=== PATIENT | female | born 1995 | race Caucasian/White ===

== ENCOUNTER 2017-09-28 18:36 | Inpatient (IN) | payer BC ==
[2017-09-28] MEDS ORDERED: ONDANSETRON 4 MG INJ IV (19:00)
[2017-09-28] MEDS ORDERED: SOD CHLORIDE 0.9% 1,000 ML IV (19:00)
[2017-09-28] MEDS: DEXTROSE 5%-0.45% NACL 1,000 ML IV (21:30)
[2017-09-29 00:48] LABS: ADD MAN DIFF? NO
[2017-09-29 00:53] LABS: WHITE BLOOD COUNT 15.6 10^3/ul (4.8-10.8)
[2017-09-29 00:53] LABS: BASOPHILS % 0.2 % (0.0-2.0); HEMATOCRIT 35.4 % (37.0-47.0); HEMOGLOBIN 11.4 g/dl (12.0-16.0); LYMPHOCYTES # 1.2 10^3/ul (0.8-2.9); LYMPHOCYTES % 7.6 % (15.0-51.0); MEAN CORPUSCULAR HEMOGLOBIN 23.4 pg (29.0-33.0); MEAN CORPUSCULAR HGB CONC 32.2 g/dl (32.0-37.0); MEAN CORPUSCULAR VOLUME 72.7 fl (82.0-101.0); MONOCYTE # 0.8 10^3/ul (0.3-0.9); MONOCYTES % 5.3 % (0.0-11.0); NEUTROPHIL # 13.5 10^3/ul (1.6-7.5); NEUTROPHILS % 86.5 % (39.0-77.0); PLATELET COUNT 226 10^3/UL (140-415); RED BLOOD COUNT 4.87 10^6/ul (4.20-5.40); RED CELL DISTRIBUTION WIDTH 13.5 % (11.5-14.5)
[2017-09-29 01:12] LABS: ALANINE AMINOTRANSFERASE 54 IU/L (13-69); ALBUMIN 3.1 g/dl (3.3-4.9); ALBUMIN/GLOBULIN RATIO 1.19; ALKALINE PHOSPHATASE 39 IU/L (42-121); ANION GAP 13 (8-16); ASPARTATE AMINO TRANSFERASE 21 IU/L (15-46); BILIRUBIN,INDIRECT 0.4 mg/dl (0-1.1); BILIRUBIN,TOTAL 0.4 mg/dl (0.2-1.3); BLOOD UREA NITROGEN 7 mg/dl (7-20); CALCIUM 7.7 mg/dl (8.4-10.2); CARBON DIOXIDE 23 mmol/L (21-31); CHLORIDE 109 mmol/L (97-110); GLUCOSE 133 mg/dl (70-220); MAGNESIUM 1.3 mg/dl (1.7-2.5); PHOSPHORUS 2.6 mg/dl (2.5-4.9); POTASSIUM 3.5 mmol/L (3.5-5.1); SODIUM 141 mmol/L (135-144); TOTAL PROTEIN 5.7 g/dl (6.1-8.1)
[2017-09-29] MEDS: ACETAMINOPHEN 325 MG TAB PO (02:20)
[2017-09-29] MEDS ORDERED: ALBUTEROL/IPRATROPIUM (NEB) 3 ML AMP HHN (04:00)
[2017-09-29] MEDS ORDERED: NACL 0.9% 3 ML SYG IV (04:00)
[2017-09-29] MEDS ORDERED: morphine 2 MG INJ IV (04:00)
[2017-09-29] MEDS: DEXTROSE 5%-0.45% NACL 1,000 ML IV ×3 (05:03→18:57)
[2017-09-29] MEDS: CIPROFLOXACIN 400MG/D5W 200 ML IVPB ×3 (05:03→20:42)
[2017-09-29 05:49] LABS: ADD MAN DIFF? NO
[2017-09-29 05:57] LABS: WHITE BLOOD COUNT 14.5 10^3/ul (4.8-10.8)
[2017-09-29 05:57] LABS: BASOPHILS % 0.2 % (0.0-2.0); HEMATOCRIT 36.1 % (37.0-47.0); HEMOGLOBIN 11.4 g/dl (12.0-16.0); LYMPHOCYTES # 1.4 10^3/ul (0.8-2.9); LYMPHOCYTES % 9.7 % (15.0-51.0); MEAN CORPUSCULAR HEMOGLOBIN 23.1 pg (29.0-33.0); MEAN CORPUSCULAR HGB CONC 31.6 g/dl (32.0-37.0); MEAN CORPUSCULAR VOLUME 73.2 fl (82.0-101.0); MEAN PLATELET VOLUME 11.3 fl (7.4-10.4); MONOCYTES % 6.6 % (0.0-11.0); NEUTROPHIL # 12.1 10^3/ul (1.6-7.5); PLATELET COUNT 233 10^3/UL (140-415); RED BLOOD COUNT 4.93 10^6/ul (4.20-5.40); RED CELL DISTRIBUTION WIDTH 13.5 % (11.5-14.5)
[2017-09-29 06:45] LABS: ALANINE AMINOTRANSFERASE 54 IU/L (13-69); ALKALINE PHOSPHATASE 37 IU/L (42-121); ANION GAP 11 (8-16); ASPARTATE AMINO TRANSFERASE 20 IU/L (15-46); BILIRUBIN,INDIRECT 0.5 mg/dl (0-1.1); BILIRUBIN,TOTAL 0.5 mg/dl (0.2-1.3); BLOOD UREA NITROGEN 4 mg/dl (7-20); CALCIUM 7.9 mg/dl (8.4-10.2); CARBON DIOXIDE 25 mmol/L (21-31); CHLORIDE 110 mmol/L (97-110); CREATININE 0.72 mg/dl (0.44-1.00); GLUCOSE 135 mg/dl (70-220); POTASSIUM 3.6 mmol/L (3.5-5.1); SODIUM 142 mmol/L (135-144); TOTAL PROTEIN 5.3 g/dl (6.1-8.1)
[2017-09-29] MEDS: metroNIDAZOLE 500 MG/NS (PMX) 100 ML IVPB ×3 (06:45→22:18)
[2017-09-29] MEDS: morphine 2 MG INJ IV ×3 (06:49→17:37)
[2017-09-29] MEDS: FAMOTIDINE 20 MG INJ IV ×2 (09:21→20:41)
[2017-09-29 10:33] LABS: OCCULT BLOOD STOOL NEGATIVE (NEGATIVE)
[2017-09-29 10:36] LABS: ADD UMIC NO; UR ASCORBIC ACID NEGATIVE (NEGATIVE); UR BILIRUBIN (Dip) NEGATIVE (NEGATIVE); UR BLOOD (Dip) NEGATIVE (NEGATIVE); UR CLARITY CLEAR (CLEAR); UR COLOR STRAW (YELLOW); UR GLUCOSE (Dip) NEGATIVE (NEGATIVE); UR KETONES (Dip) TRACE mg/dL (NEGATIVE); UR LEUKOCYTE ESTERASE (Dip) NEGATIVE Leu/ul (NEGATIVE); UR NITRITE (Dip) NEGATIVE (NEGATIVE); UR SPECIFIC GRAVITY (Dip) 1.006 (1.003-1.030); UR TOTAL PROTEIN (Dip) NEGATIVE (NEGATIVE); UR UROBILINOGEN (Dip) NEGATIVE (NEGATIVE)
[2017-09-29] MEDS: IOHEXOL 300MG/ML 150 ML BTL (14:44)
[2017-09-29] MEDS: SOD CHLORIDE 0.9% 100 ML (14:44)
[2017-09-29] MEDS: MAGNESIUM CITRATE 300 ML BTL PO (18:57)
[2017-09-29] MEDS: POLYETHYLENE GLYCOL 3350 119 GM POWDER PO (18:58)
[2017-09-29] MEDS: BISACODYL (EC) 5 MG TAB PO (18:58)
[2017-09-29] MEDS: morphine 4 MG/ML VIAL IV (20:42)
[2017-09-29] MEDS: ONDANSETRON 4 MG INJ IV (22:18)
[2017-09-30] MEDS: morphine 2 MG INJ IV ×4 (02:59→18:38)
[2017-09-30] MEDS: DEXTROSE 5%-0.45% NACL 1,000 ML IV ×3 (05:19→21:30)
[2017-09-30] MEDS: metroNIDAZOLE 500 MG/NS (PMX) 100 ML IVPB ×4 (05:23→21:02)
[2017-09-30] MEDS: POLYETHYLENE GLYCOL 3350 119 GM POWDER PO (05:30)
[2017-09-30 06:01] LABS: ADD MAN DIFF? NO
[2017-09-30 06:05] LABS: WHITE BLOOD COUNT 9.1 10^3/ul (4.8-10.8)
[2017-09-30 06:05] LABS: BASOPHILS % 0.2 % (0.0-2.0); EOSINOPHILS # 0.1 10^3/ul (0.0-0.5); EOSINOPHILS % 1.5 % (0.0-7.0); HEMATOCRIT 35.6 % (37.0-47.0); HEMOGLOBIN 11.5 g/dl (12.0-16.0); LYMPHOCYTES % 21.5 % (15.0-51.0); MEAN CORPUSCULAR HEMOGLOBIN 23.4 pg (29.0-33.0); MEAN CORPUSCULAR HGB CONC 32.3 g/dl (32.0-37.0); MEAN CORPUSCULAR VOLUME 72.4 fl (82.0-101.0); MEAN PLATELET VOLUME 10.9 fl (7.4-10.4); MONOCYTE # 1.1 10^3/ul (0.3-0.9); MONOCYTES % 11.6 % (0.0-11.0); NEUTROPHIL # 5.9 10^3/ul (1.6-7.5); NEUTROPHILS % 64.8 % (39.0-77.0); PLATELET COUNT 228 10^3/UL (140-415); RED BLOOD COUNT 4.92 10^6/ul (4.20-5.40); RED CELL DISTRIBUTION WIDTH 13.5 % (11.5-14.5)
[2017-09-30 06:27] LABS: CHOLESTEROL 111 mg/dl (100-200)
[2017-09-30 06:27] LABS: CHOL/HDL RATIO 3.4 RATIO; HDL CHOLESTEROL 32 mg/dl (33-83); LDL CHOLESTEROL,CALCULATED 59 mg/dl; TRIGLYCERIDES 102 mg/dl (0-149)
[2017-09-30 06:32] LABS: ANION GAP 11 (8-16); BLOOD UREA NITROGEN 2 mg/dl (7-20); CALCIUM 8.6 mg/dl (8.4-10.2); CARBON DIOXIDE 27 mmol/L (21-31); CHLORIDE 109 mmol/L (97-110); CREATININE 0.54 mg/dl (0.44-1.00); GLUCOSE 112 mg/dl (70-220); PHOSPHORUS 2.8 mg/dl (2.5-4.9); POTASSIUM 3.3 mmol/L (3.5-5.1); SODIUM 144 mmol/L (135-144)
[2017-09-30 07:27] LABS: HEMOGLOBIN A1C 5.3 % (0-5.9)
[2017-09-30] MEDS: BISACODYL (EC) 5 MG TAB PO (08:54)
[2017-09-30] MEDS: CIPROFLOXACIN 400MG/D5W 200 ML IVPB ×2 (08:54→20:58)
[2017-09-30] MEDS: FAMOTIDINE 20 MG INJ IV (09:00)
[2017-09-30] MEDS: POTASSIUM CHLORIDE (SR) 10 MEQ TAB PO (15:23)
[2017-09-30] MEDS: MIDAZOLAM 1 MG/ML 2 ML INJ (16:21)
[2017-09-30] MEDS: PROPOFOL 20 ML (16:21)
[2017-09-30] MEDS: FENTAnyl 50 MCG/ML VIAL (16:21)
[2017-09-30] MEDS: PANTOPRAZOLE 40 MG INJ IV (18:37)
[2017-09-30] MEDS: ONDANSETRON 4 MG INJ IV (18:38)
[2017-09-30] MEDS: BALSALAZIDE 750 MG CAP PO (20:57)
[2017-10-01] MEDS: DEXTROSE 5%-0.45% NACL 1,000 ML IV (03:03)
[2017-10-01] MEDS: PANTOPRAZOLE 40 MG INJ IV (05:46)
[2017-10-01] MEDS: metroNIDAZOLE 500 MG/NS (PMX) 100 ML IVPB ×2 (05:46→14:04)
[2017-10-01] MEDS: ACETAMINOPHEN 325 MG TAB PO (05:51)
[2017-10-01 05:57] LABS: ADD MAN DIFF? NO
[2017-10-01 06:02] LABS: BASOPHILS % 0.6 % (0.0-2.0); EOSINOPHILS # 0.3 10^3/ul (0.0-0.5); EOSINOPHILS % 4.6 % (0.0-7.0); HEMATOCRIT 37.3 % (37.0-47.0); LYMPHOCYTES # 2.2 10^3/ul (0.8-2.9); LYMPHOCYTES % 30.6 % (15.0-51.0); MEAN CORPUSCULAR HEMOGLOBIN 23.1 pg (29.0-33.0); MEAN CORPUSCULAR HGB CONC 32.2 g/dl (32.0-37.0); MEAN CORPUSCULAR VOLUME 71.7 fl (82.0-101.0); MEAN PLATELET VOLUME 10.8 fl (7.4-10.4); MONOCYTE # 0.7 10^3/ul (0.3-0.9); MONOCYTES % 9.4 % (0.0-11.0); NEUTROPHIL # 3.8 10^3/ul (1.6-7.5); NEUTROPHILS % 54.4 % (39.0-77.0); PLATELET COUNT 275 10^3/UL (140-415); RED CELL DISTRIBUTION WIDTH 13.5 % (11.5-14.5)
[2017-10-01 06:34] LABS: PHOSPHORUS 3.8 mg/dl (2.5-4.9)
[2017-10-01 06:34] LABS: MAGNESIUM 1.9 mg/dl (1.7-2.5)
[2017-10-01 06:35] LABS: ALANINE AMINOTRANSFERASE 57 IU/L (13-69); ALBUMIN 3.4 g/dl (3.3-4.9); ALBUMIN/GLOBULIN RATIO 1.25; ALKALINE PHOSPHATASE 41 IU/L (42-121); ANION GAP 13 (8-16); ASPARTATE AMINO TRANSFERASE 32 IU/L (15-46); BILIRUBIN,INDIRECT 0.3 mg/dl (0-1.1); BILIRUBIN,TOTAL 0.3 mg/dl (0.2-1.3); BLOOD UREA NITROGEN 4 mg/dl (7-20); CALCIUM 8.3 mg/dl (8.4-10.2); CARBON DIOXIDE 25 mmol/L (21-31); CHLORIDE 108 mmol/L (97-110); CREATININE 0.63 mg/dl (0.44-1.00); GLUCOSE 113 mg/dl (70-220); POTASSIUM 3.4 mmol/L (3.5-5.1); SODIUM 143 mmol/L (135-144); TOTAL PROTEIN 6.1 g/dl (6.1-8.1)
[2017-10-01] MEDS: CIPROFLOXACIN 400MG/D5W 200 ML IVPB (08:31)
[2017-10-01] MEDS: BALSALAZIDE 750 MG CAP PO ×3 (08:31→21:11)
[2017-10-01] MEDS: PANTOPRAZOLE (EC) 40 MG TAB PO (17:37)
[2017-10-01] MEDS: CIPROFLOXACIN 500 MG TAB PO (17:37)
[2017-10-01] MEDS: METHYLPREDNISOLONE 40 MG INJ IV ×2 (18:28→21:12)
[2017-10-01] MEDS: metroNIDAZOLE 500 MG TAB PO (21:11)
[2017-10-02] MEDS: METHYLPREDNISOLONE 40 MG INJ IV (06:41)
[2017-10-02] MEDS: PANTOPRAZOLE (EC) 40 MG TAB PO ×2 (06:41→09:00)
[2017-10-02] MEDS: CIPROFLOXACIN 500 MG TAB PO (06:41)
[2017-10-02] MEDS: BALSALAZIDE 750 MG CAP PO (09:05)
[2017-10-02] MEDS ORDERED: predniSONE 20 MG TAB PO (14:00)
== END 2017-10-02 11:00 | disposition home or self-care (01) | DRG 386 ==
LOC: MS2 18:36
PROVIDERS: Internal Medicine
PROC: 0DBK8ZX Excision of Ascending Colon, Via Natural or Artificial Opening Endoscopic, Diagnostic (ICD-10-PCS; principal; 2017-09-30 16:10)
PROC: 0DBL8ZX Excision of Transverse Colon, Via Natural or Artificial Opening Endoscopic, Diagnostic (ICD-10-PCS; 2017-09-30 16:10)
PROC: 0DBP8ZX Excision of Rectum, Via Natural or Artificial Opening Endoscopic, Diagnostic (ICD-10-PCS; 2017-09-30 16:10)
PROC: 0DBB8ZX Excision of Ileum, Via Natural or Artificial Opening Endoscopic, Diagnostic (ICD-10-PCS; 2017-09-30 16:10)
PROC: 0DBM8ZX Excision of Descending Colon, Via Natural or Artificial Opening Endoscopic, Diagnostic (ICD-10-PCS; 2017-09-30 16:10)
PROC: 0DBH8ZX Excision of Cecum, Via Natural or Artificial Opening Endoscopic, Diagnostic (ICD-10-PCS; 2017-09-30 16:10)
DX: K51.00 Ulcerative (chronic) pancolitis without complications (principal); Z68.41 Body mass index [BMI] 40.0-44.9, adult; R65.10 Systemic inflammatory response syndrome (SIRS) of non-infectious origin without acute organ dysfunction; E66.01 Morbid (severe) obesity due to excess calories; D50.9 Iron deficiency anemia, unspecified; K52.9 Noninfective gastroenteritis and colitis, unspecified; K64.8 Other hemorrhoids; K29.70 Gastritis, unspecified, without bleeding; E86.0 Dehydration; Z87.891 Personal history of nicotine dependence
CPT/HCPCS: 74177; 80048; 80053; 80061; 81003; 82270; 83036; 83605; 83735; 84100; 84703; 85025; 87040; 87045; 87075; 87086; 88305

== ENCOUNTER 2018-03-15 07:07 | Day surgery (SDC) | payer BC ==
[~2018-03-15 07:07] MED LIST: ACETAMINOPHEN 1000 MG/100 ML IVPB; LIDOCAINE 2% (SDV) 5 ML INJ
[2018-03-15] MEDS ORDERED: PROPOFOL 100 ML (08:47)
[2018-03-15] MEDS ORDERED: ROCURONIUM 50 MG INJ (09:22)
[2018-03-15] MEDS ORDERED: DEXAMETHASONE 4 MG/ML 1 ML INJ (09:23)
[2018-03-15] MEDS ORDERED: ONDANSETRON 4 MG INJ (09:29)
[2018-03-15] MEDS ORDERED: SUGAMMADEX SODIUM 200 MG/2 ML VIAL IV (09:40)
[2018-03-15] MEDS ORDERED: HYDROmorphONE 0.5 MG/0.5 ML SYG IV (10:00)
[2018-03-15] MEDS: FENTAnyl 50 MCG/ML VIAL IV ×2 (10:14→10:22)
[2018-03-15] MEDS: ONDANSETRON 4 MG INJ IV (10:16)
[2018-03-15] MEDS ORDERED: EPHEDrine SULFATE 50 MG/5 ML SYG IV (10:30)
[2018-03-15] MEDS ORDERED: HYDROmorphONE 1 MG/5 ML IV SYRINGE IV ×3 (10:30)
[2018-03-15] MEDS ORDERED: MIDAZOLAM 1 MG/ML 2 ML INJ IV (10:30)
[2018-03-15] MEDS ORDERED: FENTAnyl 50 MCG/ML VIAL IV ×2 (10:30)
[2018-03-15] MEDS ORDERED: DIPHENHYDRAMINE 50 MG INJ IV (10:30)
[2018-03-15] MEDS ORDERED: hydrALAzine 20 MG INJ IV (10:30)
[2018-03-15] MEDS ORDERED: LABETALOL HCL 20MG INJ IV (10:30)
[2018-03-15] MEDS ORDERED: METOCLOPRAMIDE 10 MG INJ IV (10:30)
[2018-03-15] MEDS ORDERED: MEPERIDINE 25 MG INJ IV (10:30)
[2018-03-15] MEDS ORDERED: OXYCODONE/ACETAMINOPHEN (5/325) TAB PO ×2 (10:30)
[2018-03-15] MEDS ORDERED: ALBUTEROL 0.083% (NEB) 2.5 MG/3 ML AMP HHN (10:30)
== END 2018-03-15 12:15 | disposition home or self-care (01) ==
LOC: SDS 07:07
DX: J35.3 Hypertrophy of tonsils with hypertrophy of adenoids (principal)
CPT/HCPCS: 42821; 84703; 88304

== ENCOUNTER 2018-03-20 10:35 | Emergency (ER) | payer BC ==
[2018-03-20] MEDS: IBUPROFEN LIQUID (PED) 20 MG/ML CUP PO (11:07)
== END 2018-03-20 11:45 | disposition home or self-care (01) ==
LOC: FTE 10:35
DX: G89.18 Other acute postprocedural pain (principal); R40.2412 Glasgow coma scale score 13-15, at arrival to emergency department
CPT/HCPCS: 99282; Z7502

== ENCOUNTER 2018-06-22 11:57 | Emergency (ER) | payer BC ==
[2018-06-22 13:48] LABS: ADD MAN DIFF? NO
[2018-06-22 13:54] LABS: WHITE BLOOD COUNT 9.1 10^3/ul (4.8-10.8)
[2018-06-22 13:54] LABS: BASOPHIL # 0.1 10^3/ul (0.0-0.1); BASOPHILS % 0.5 % (0.0-2.0); EOSINOPHILS # 0.3 10^3/ul (0.0-0.5); EOSINOPHILS % 3.6 % (0.0-7.0); HEMATOCRIT 44.1 % (37.0-47.0); HEMOGLOBIN 13.8 g/dl (12.0-16.0); LYMPHOCYTES # 3.8 10^3/ul (0.8-2.9); LYMPHOCYTES % 41.1 % (15.0-51.0); MEAN CORPUSCULAR HEMOGLOBIN 22.8 pg (29.0-33.0); MEAN CORPUSCULAR HGB CONC 31.3 g/dl (32.0-37.0); MEAN CORPUSCULAR VOLUME 72.9 fl (82.0-101.0); MEAN PLATELET VOLUME 10.7 fl (7.4-10.4); MONOCYTE # 0.6 10^3/ul (0.3-0.9); MONOCYTES % 6.6 % (0.0-11.0); NEUTROPHIL # 4.4 10^3/ul (1.6-7.5); NEUTROPHILS % 47.9 % (39.0-77.0); PLATELET COUNT 334 10^3/UL (140-415); RED BLOOD COUNT 6.05 10^6/ul (4.20-5.40); RED CELL DISTRIBUTION WIDTH 13.2 % (11.5-14.5)
[2018-06-22 14:00] LABS: ADD UMIC YES; UR ASCORBIC ACID NEGATIVE (NEGATIVE); UR BILIRUBIN (Dip) NEGATIVE (NEGATIVE); UR BLOOD (Dip) NEGATIVE (NEGATIVE); UR CLARITY CLEAR (CLEAR); UR COLOR YELLOW (YELLOW); UR GLUCOSE (Dip) NEGATIVE (NEGATIVE); UR KETONES (Dip) NEGATIVE (NEGATIVE); UR LEUKOCYTE ESTERASE (Dip) TRACE Leu/ul (NEGATIVE); UR MUCUS FEW /HPF (NONE SEEN); UR NITRITE (Dip) NEGATIVE (NEGATIVE); UR RBC 0 /HPF (0-5); UR SPECIFIC GRAVITY (Dip) 1.021 (1.003-1.030); UR TOTAL PROTEIN (Dip) NEGATIVE (NEGATIVE); UR UROBILINOGEN (Dip) NEGATIVE (NEGATIVE); UR WBC 1 /HPF (0-5)
[2018-06-22 14:11] LABS: ALANINE AMINOTRANSFERASE 178 IU/L (13-69); ALBUMIN 4.6 g/dl (3.3-4.9); ALBUMIN/GLOBULIN RATIO 1.43; ALKALINE PHOSPHATASE 50 IU/L (42-121); ANION GAP 17 (5-13); ASPARTATE AMINO TRANSFERASE 106 IU/L (15-46); BILIRUBIN,INDIRECT 0.3 mg/dl (0-1.1); BILIRUBIN,TOTAL 0.3 mg/dl (0.2-1.3); BLOOD UREA NITROGEN 11 mg/dl (7-20); CALCIUM 9.7 mg/dl (8.4-10.2); CARBON DIOXIDE 26 mmol/L (21-31); CHLORIDE 102 mmol/L (97-110); CREATININE 0.51 mg/dl (0.44-1.00); Estimated GFR > 60 mL/min (>60); GLUCOSE 102 mg/dl (70-220); LIPASE 55 U/L (23-300); POTASSIUM 3.9 mmol/L (3.5-5.1); SODIUM 145 mmol/L (135-144); TOTAL PROTEIN 7.8 g/dl (6.1-8.1)
== END 2018-06-22 15:08 | disposition home or self-care (01) ==
LOC: FTE 11:57
DX: J40 Bronchitis, not specified as acute or chronic (principal); K52.9 Noninfective gastroenteritis and colitis, unspecified
CPT/HCPCS: 36415; 71045; 80053; 81001; 81025; 83690; 85025; 99284-25